=== PATIENT | female | born 1980 | race Caucasian/White ===

== ENCOUNTER 2024-01-12 12:25 | Emergency (ER) | payer OTHER, SELFPAY ==
[2024-01-12 12:32] VITALS: BP 145/118; PULSE 113; RESP 14; TEMP 36.6; O2SAT 93; BMI 36.7
--- NOTE | 2024-01-12 13:07 | XR_ITS ---
The [address] [address] Patient Name: LYNDSAY OLEARY MRN: [id number] date: 1980 Sex: F Assigned Patient Location: ER Current Patient Location: ED.MAIN Accession/Order Number: [id number] Exam Date: 01/12/2024 13:00 Report Date: 01/12/2024 13:31 At the request of: GIANNI GARCIA Procedure: XR ankle RT min 3V EXAM: XR ankle RT min 3V HISTORY: fall COMPARISON: Right ankle study dated 05/10/2019 TECHNIQUE: 3 views of the right ankle were obtained. FINDINGS: Ankle mortise appears grossly intact. On oblique view there is faint transverse lucency without obvious cortical offset at the tip of the distal fibula which is nonspecific, undisplaced fracture to exclude entirely. Large amount of soft tissue swelling laterally and anteriorly. Ankle joint effusion is suggested. Calcification distal to the medial malleolus similar to the prior study which may be related to remote injury or ossification center. XR/XR ankle RT min 3V IMPRESSION: Right ankle study demonstrates possible undisplaced transverse fracture of the tip at the distal fibula. Soft tissue swelling as noted. Follow-up as needed. Electronically authenticated by: MALATHI MCKINNON Date: 01/12/2024 13:31
[2024-01-12 13:49] VITALS: BP 145/97; PULSE 104; RESP 18; O2SAT 96
--- NOTE | 2024-01-12 13:59 | ED_ITS ---
HPI - Extremity Injury (Lower) General Chief Complaint: Extremity Injury, Lower Stated Complaint: LOWER EXTREMITY INJURY Time Seen by Provider: 01/12/24 13:57 Source: patient and family Mode of arrival: Wheelchair Limitations: no limitations History of Present Illness HPI Narrative: Is a 43-year-old female who presents to the emergency department for injuries after a fall prior to arrival. She states that she tripped and fell against a wall twisting her right ankle. She complains of pain and swelling in the ankle. She states she did hit her head against the wall, she is not noted to have any facial swelling or bruising and she denies any loss of consciousness. She states she is having double vision and feeling mildly nauseous at this time. She has had no neck pain. Her family member reports that back pain has been present for several days prior to the fall after the patient reports back pain as well. She has no peripheral paresthesias. She took a Nurtec prior to arrival because she has a history of migraines. She has not had any bleeding from the nose or mouth. She states that her left arm is painful where the blood pressure cuff was placed by nursing. She denies any new or different hip or knee pain. She has no concern for . Related Data Previous Rx's ?Medication ?Instructions ?Recorded hydrocodone 5 mg-acetaminophen 325 1 tab PO Q6H PRN pain 3 days #12 01/12/24 mg tablet tabs ondansetron 4 mg disintegrating 4 mg PO Q6H PRN nausea and 01/12/24 tablet vomiting #12 tabs Allergies Allergy/AdvReac Type Severity Reaction Status Date / Time erythromycin base Allergy Verified 01/12/24 12:32 Review of Systems ROS Constitutional Denies: fever or chills Eyes Reports: change in vision Ears, nose, mouth, and throat Denies: throat pain or neck pain Cardiovascular Denies: chest pain Respiratory Denies: shortness of breath or cough Gastrointestinal Reports: nausea; Denies: abdominal pain or vomiting Musculoskeletal Reports: back pain, extremity pain, extremity swelling, joint pain and limited range of motion; Denies: neck pain Integumentary/Breast Denies: rash Neurological Reports: headache; Denies: numbness in extremities or weakness in extremities Hematologic/Lymphatic Denies: easy bruising or easy bleeding Exam Narrative Exam Narrative: Gen.: Awake, alert, in no distress Head: Normocephalic, atraumatic ENT: Moist mucous membranes Respiratory: No respiratory distress Extremities: Diffuse swelling and tenderness of the right ankle with no bony point tenderness or obvious deformity. Limited flexion and extension of the toes of the right foot. 2+ right DP pulse. Psych: Normal mood and affect Neuro: No focal neuro deficit Skin: Warm, dry, intact Constitutional Vital Signs, click to edit/add: Last Vital Signs Temp 98 F 01/12/24 12:32 Pulse 104 H 01/12/24 13:49 Resp 18 01/12/24 13:49 BP 145/97 H 01/12/24 13:49 Pulse Ox 96 01/12/24 13:49 O2 Del Method Room Air 01/12/24 12:32 Course Vital Signs Vital signs: Vital Signs Temperature 98 F 01/12/24 12:32 Pulse Rate 113 H 01/12/24 12:32 Respiratory Rate 14 01/12/24 12:32 Blood Pressure 145/118 H 01/12/24 12:32 Pulse Oximetry 93 L 01/12/24 12:32 Oxygen Delivery Method Room Air 01/12/24 12:32 Temperature 98 F 01/12/24 12:32 Pulse Rate 104 H 01/12/24 13:49 Respiratory Rate 18 01/12/24 13:49 Blood Pressure 145/97 H 01/12/24 13:49 Pulse Oximetry 96 01/12/24 13:49 Oxygen Delivery Method Room Air 01/12/24 12:32 MDM - Extremity Injury (Lower) MDM Narrative Medical decision making narrative: X-rays of the right ankle were performed in the [facility] showing a questionable nondisplaced fracture of the tip of the distal fibula on 1 view only. These x- rays were reviewed by myself and Dr. Gtz, we feel this does not represent an acute fracture, but patient will be treated with a short course of analgesics, Chester wrap and Aircast. She has crutches at home. She reports head injury with double vision in the ER although she is awake, alert, appropriate with a normal neuroexam. CT of the head was also performed showing the patient has no evidence of acute process. She will be discharged home with a short course of analgesics. Follow-up with Dr. Fabrizio Casiano and return to the ER if symptoms change or worsen. Medical Records Attestation: I reviewed the patient's medical records. Imaging Data CT scan - head: Attestation: I have reviewed the pertinent imaging results. Radiologist's impression: ITS Impressions Ankle X-Ray 01/12/24 13:07 IMPRESSION: Right ankle study demonstrates possible undisplaced transverse fracture of the tip at the distal fibula. Soft tissue swelling as noted. Follow-up as needed. Electronically authenticated by: MALATHI MCKINNON Date: 01/12/2024 13:[address] 01/12/24 15:17 IMPRESSION: No acute intracranial process. Electronically authenticated by: ANALILIA WALKER Date: 01/12/2024 15:35 Discharge Plan Discharge Stand Alone Forms: Portal Instructions Chief Complaint: Extremity Injury, Lower Clinical Impression: Closed head injury, Acute right ankle pain, Closed right ankle fracture Patient Disposition: Home, Self-Care Time of Disposition Decision: 15:42 Condition: Good Prescriptions / Home Meds: New hydrocodone-acetaminophen 5-325 mg tablet 1 tab PO Q6H PRN (Reason: pain) 3 Days Qty: 12 0RF Rx Instructions: DX: M25.571 ondansetron 4 mg tablet,disintegrating 4 mg PO Q6H PRN (Reason: nausea and vomiting) Qty: 12 0RF Print Language: Luxembourgish Instructions: Ankle Fracture (ED), Head Injury (ED) Referrals: Ken Dickey DPM [Physician] - 1 week NITO CONNELLY [Primary Care Provider] - 1 week
[2024-01-12] MEDS: HYDROCODONE/ACET 5-325 MG TABLET 1 TAB PO (14:06)
--- NOTE | 2024-01-12 15:17 | CT_ITS ---
The [address] [address] Patient Name: LYNDSAY OLEARY MRN: [facility]:[id number] date: 1980 Sex: F Assigned Patient Location: ED.MAIN Current Patient Location: ER Accession/Order Number: [id number] Exam Date: 01/12/2024 15:05 Report Date: 01/12/2024 15:35 At the request of: GERALDINE ANDREA Procedure: CT head/brain wo con EXAM: CT head/brain wo con HISTORY: fall COMPARISON: CT head 08/20/2022. TECHNIQUE: Axial noncontrast CT imaging of the head was performed with coronal and sagittal reformats. FINDINGS: Calvarium/skull base: No evidence of acute fracture or destructive lesion. Mastoids and middle ears demonstrate no substantial mucosal disease. Paranasal sinuses: No air fluid levels. Brain: No acute intracranial hemorrhage. No acute large vascular territory infarct. No mass lesion or mass effect. No hydrocephalus. CT/CT head/brain wo con IMPRESSION: No acute intracranial process. Electronically authenticated by: ANALILIA WALKER Date: 01/12/2024 15:35
== END 2024-01-12 15:59 | disposition home or self-care (01) ==
PROVIDERS: Emergency Provider Emergency Medicine; PCP Family Medicine
DX: S82.831A Other fracture of upper and lower end of right fibula, initial encounter for closed fracture (principal); S09.8XXA Other specified injuries of head, initial encounter; M25.571 Pain in right ankle and joints of right foot; W01.0XXA Fall on same level from slipping, tripping and stumbling without subsequent striking against object, initial encounter
CPT/HCPCS: 70450; 73610; 99284

== ENCOUNTER 2024-01-15 13:13 | Outpatient (OUT) | payer OTHER, SELFPAY ==
--- NOTE | 2024-01-15 | XR_ITS ---
[address] [address] Patient Name: LYNDSAY OLEARY MRN: [id number] date: 1980 Sex: F Assigned Patient Location: Current Patient Location: Accession/Order Number: [id number] Exam Date: 01/15/2024 13:20 Report Date: 01/15/2024 15:41 At the request of: ADILENE REED Procedure: XR ankle RT min 3V PROCEDURE: XR ankle RT min 3V, XR foot RT min 3V COMPARISON: 01/12/2024 HISTORY: RIGHT ANKLE PAIN FINDINGS: BONES:Slight cortical irregularity along the inferior lateral malleolus likely representing a nondisplaced fracture. Corticated fracture inferior medial malleolus, remote. No additional fracture of the foot or ankle SOFT TISSUES:Extensive ankle and foot soft tissue swelling, lateral greater than medial EFFUSION:Large joint effusion OTHER: Negative. XR/XR ankle RT min 3V IMPRESSION: Suspected nondisplaced fracture inferior lateral malleolus Extensive soft tissue swelling Electronically authenticated by: FRANCISCO J LAMAR Date: 01/15/2024 15:41
--- NOTE | 2024-01-15 | XR_ITS ---
[address] [address] Patient Name: LYNDSAY OLEARY MRN: [id number] date: 1980 Sex: F Assigned Patient Location: Current Patient Location: Accession/Order Number: [id number] Exam Date: 01/15/2024 13:20 Report Date: 01/15/2024 15:41 At the request of: ADILENE REED Procedure: XR foot RT min 3V PROCEDURE: XR ankle RT min 3V, XR foot RT min 3V COMPARISON: 01/12/2024 HISTORY: RIGHT ANKLE PAIN FINDINGS: BONES:Slight cortical irregularity along the inferior lateral malleolus likely representing a nondisplaced fracture. Corticated fracture inferior medial malleolus, remote. No additional fracture of the foot or ankle SOFT TISSUES:Extensive ankle and foot soft tissue swelling, lateral greater than medial EFFUSION:Large joint effusion OTHER: Negative. XR/XR foot RT min 3V IMPRESSION: Suspected nondisplaced fracture inferior lateral malleolus Extensive soft tissue swelling Electronically authenticated by: FRANCISCO J LAMAR Date: 01/15/2024 15:41
== END 2024-01-15 13:14 | disposition home or self-care (01) ==
LOC: EC 13:13
PROVIDERS: PCP Family Medicine; Visit Provider Physician Assistant
DX: M79.671 Pain in right foot (principal); M25.571 Pain in right ankle and joints of right foot
CPT/HCPCS: 73610; 73630